=== PATIENT | male | born 1960 | race Caucasian/White ===

== ENCOUNTER 2017-05-14 19:00 | Emergency (ER) | payer MEDICAID, OTHER ==
[~2017-05-14] VITALS: Ht 172.7 cm; Wt 103.6 kg
[~2017-05-14 19:00] MED LIST: AMLO2.5T29 PO; METF500T4 PO
[2017-05-14 19:33] LABS: GLUCOSE,POINT OF CARE 186 MG/DL (70-110)
[2017-05-14] MEDS ORDERED: KETOROLAC TROMETHAMINE 60 MG/2 ML VIAL IM ONE (21:30)
[2017-05-14 22:19] VITALS: BP 157/102
== END 2017-05-14 22:50 | disposition home or self-care (01) ==
LOC: EMS 19:02
DX: M25.811 Other specified joint disorders, right shoulder (principal); E11.9 Type 2 diabetes mellitus without complications; I10 Essential (primary) hypertension
CPT/HCPCS: 73030; 82962; 96372; 99284; J1885

== ENCOUNTER 2017-08-20 10:53 | Emergency (ER) | payer OTHER ==
[~2017-08-20] VITALS: Ht 172.7 cm; Wt 105.0 kg
[2017-08-20 11:23] LABS: GLUCOSE,POINT OF CARE 208 MG/DL (70-110)
[2017-08-20 13:49] VITALS: BP 149/98
== END 2017-08-20 14:40 | disposition home or self-care (01) ==
LOC: EMS 11:00
DX: J18.9 Pneumonia, unspecified organism (principal); I10 Essential (primary) hypertension; E11.9 Type 2 diabetes mellitus without complications
CPT/HCPCS: 71046; 82962; 99284

== ENCOUNTER 2018-01-01 15:40 | Emergency (ER) | payer OTHER ==
[~2018-01-01] VITALS: Ht 170.2 cm; Wt 105.0 kg
[~2018-01-01 15:40] MED LIST changes: -AMLO2.5T29 PO; -METF500T4 PO; +METF500T6 PO
[2018-01-01 15:49] LABS: GLUCOSE,POINT OF CARE 141 MG/DL (70-110)
[2018-01-01 16:49] VITALS: BP 137/90
== END 2018-01-01 16:49 | disposition home or self-care (01) ==
LOC: EMS 15:41
DX: S76.012A Strain of muscle, fascia and tendon of left hip, initial encounter (principal); E11.9 Type 2 diabetes mellitus without complications; I10 Essential (primary) hypertension; W18.40XA Slipping, tripping and stumbling without falling, unspecified, initial encounter; Y93.89 Activity, other specified; Y92.89 Other specified places as the place of occurrence of the external cause; Y99.0 Civilian activity done for income or pay
CPT/HCPCS: 99283

== ENCOUNTER 2022-04-11 07:52 | Emergency (ER) | payer OTHER ==
[~2022-04-11] VITALS: Ht 170.2 cm; Wt 104.0 kg
[~2022-04-11 07:52] MED LIST changes: +METF-1211 PO; -METF500T6 PO
[2022-04-11 08:45] LABS: COVID AG,FIA SOURCE NASOPHARYNGEAL
[2022-04-11 08:55] LABS: BASOPHILS % (AUTO) 0.5 % (0.0-2.0); EOSINOPHILS % (AUTO) 4.1 % (1.0-6.0); HEMATOCRIT 39.3 % (41-53); HEMOGLOBIN 13.4 g/dL (13.5-17.5); LYMPHOCYTES # (AUTO) 1.6 K/uL (1.0-4.8); LYMPHOCYTES % (AUTO) 35.4 % (22.0-44.0); MEAN CORPUSCULAR HEMOGLOBIN 33.2 pg (26.0-34.0); MEAN CORPUSCULAR VOLUME 98 fL (80-100); MONOCYTES # (AUTO) 0.3 K/uL (0.1-1.0); MONOCYTES % (AUTO) 7.7 % (2.0-9.0); NEUTROPHILS # (AUTO) 2.3 K/uL (1.8-7.7); NEUTROPHILS % (AUTO) 52.3 % (40.0-70.0); PLATELET COUNT (AUTO) 217 K/uL (150-450); RED BLOOD CELL COUNT(AUTO) 4.03 MIL/uL (4.50-5.90); RED CELL DISTRIBUTION WIDTH 14.1 % (11.5-14.5)
[2022-04-11 08:56] LABS: ANION GAP 9 mmol/L (8-16); CALCIUM, TOTAL 9.1 mg/dL (8.8-10.5); CARBON DIOXIDE 26 mmol/L (22-29); CHLORIDE 99 mmol/L (98-107); CREATININE 0.96 mg/dL (0.60-1.30); GLUCOSE,RANDOM 221 mg/dL (70-110); POTASSIUM 4.3 mmol/L (3.5-5.1); SODIUM SERUM 134 mmol/L (136-145); UREA NITROGEN, BLOOD 14 mg/dL (7-18)
[2022-04-11 09:02] LABS: ALANINE AMINOTRANSFERASE 30 U/L (12-78); ALBUMIN 3.3 g/dL (3.4-5.0); ALKALINE PHOSPHATASE 154 U/L (46-116); ASPARTATE AMINOTRANSFERASE 41 U/L (15-37); BILIRUBIN,TOTAL 0.5 mg/dL (0.1-1.0); TOTAL PROTEIN, SERUM 7.9 g/dL (6.4-8.2)
[2022-04-11 09:09] LABS: GLOMERULAR FILTR. RATE CALC > 60 mL/min (>60)
[2022-04-11 09:14] LABS: B-TYPE NATRIURETIC PEPTIDE 39 pg/mL (0-100)
[2022-04-11 09:54] LABS: INFLUENZA TYPE A NEGATIVE FOR TYPE A (NEGATIVE); INFLUENZA TYPE B NEGATIVE FOR TYPE B (NEGATIVE)
[2022-04-11 09:59] LABS: APPEARANCE,URINE CLEAR (CLEAR); BILIRUBIN,URINE NEGATIVE (NEGATIVE); GLUCOSE, URINE (UA) TRACE mg/dL (NEGATIVE); KETONES,URINE NEGATIVE (NEGATIVE); LEUKOCYTE ESTERASE ,URINE NEGATIVE (NEGATIVE); NITRATE,URINE NEGATIVE (NEGATIVE); OCCULT BLOOD,URINE NEGATIVE (NEGATIVE); PH,URINE 6.5 (5.0-8.0); PROTEIN,URINE NEGATIVE (NEGATIVE); SPECIFIC GRAVITIY, URINE 1.005 (1.003-1.030); UROBILINOGEN,URINE <=1.0 mg/dL (<=1.0)
[2022-04-11 11:19] VITALS: BP 149/82
[2022-04-11 11:38] LABS: BACTERIA,URINE None Seen /HPF (None Seen); RBC,URINE None Seen /HPF (0-2); WBC,URINE None Seen /HPF (0-5)
[2022-04-11] MEDS ORDERED: ACET-66 PO (11:54)
[2022-04-11] MEDS ORDERED: GUAIFDM PO (11:54)
== END 2022-04-11 12:16 | disposition home or self-care (01) ==
LOC: EMS 07:57
DX: R53.1 Weakness (principal); Z20.822 Contact with and (suspected) exposure to COVID-19; B19.20 Unspecified viral hepatitis C without hepatic coma; E11.65 Type 2 diabetes mellitus with hyperglycemia; F10.20 Alcohol dependence, uncomplicated; I10 Essential (primary) hypertension; J06.9 Acute upper respiratory infection, unspecified
CPT/HCPCS: 71045; 80053; 81001; 82962; 83880; 84484; 85025; 87804; 93005; 99285; 36415-L1; 36415-TC

== ENCOUNTER 2022-06-20 09:49 | Emergency (ER) | payer OTHER ==
[~2022-06-20] VITALS: Ht 170.2 cm; Wt 108.2 kg
[~2022-06-20 09:49] MED LIST changes: +ACET-66 PO; +GUAIFDM PO
[2022-06-20] MEDS ORDERED: OSEL75 PO (10:00)
[2022-06-20] MEDS ORDERED: DOXY75CA5 PO (10:00)
[2022-06-20] MEDS ORDERED: BENZ-70 PO (10:00)
[2022-06-20 10:45] LABS: COVID AG,FIA SOURCE NASOPHARYNGEAL
[2022-06-20] MEDS ORDERED: ACETAMINOPHEN/CODEINE 300-30 MG TABLET PO ONE (10:45)
[2022-06-20] MEDS ORDERED: GuaiFENesin/D-METHORPHAN [SUGAR-FREE] 200-20MG/10 ML SYRUP UDCUP PO ONE (10:45)
[2022-06-20 10:57] LABS: BASOPHILS % (AUTO) 0.4 % (0.0-2.0); EOSINOPHILS % (AUTO) 6.8 % (1.0-6.0); HEMATOCRIT 42.1 % (41-53); HEMOGLOBIN 14.4 g/dL (13.5-17.5); LYMPHOCYTES # (AUTO) 1.7 K/uL (1.0-4.8); LYMPHOCYTES % (AUTO) 38.3 % (22.0-44.0); MEAN CORPUSCULAR HEMOGLOBIN 32.5 pg (26.0-34.0); MEAN CORPUSCULAR HGB CONC 34.1 G/dL (31.0-37.0); MEAN CORPUSCULAR VOLUME 95 fL (80-100); MONOCYTES # (AUTO) 0.5 K/uL (0.1-1.0); MONOCYTES % (AUTO) 10.9 % (2.0-9.0); NEUTROPHILS % (AUTO) 43.6 % (40.0-70.0); PLATELET COUNT (AUTO) 205 K/uL (150-450); RED BLOOD CELL COUNT(AUTO) 4.41 MIL/uL (4.50-5.90); RED CELL DISTRIBUTION WIDTH 13.3 % (11.5-14.5)
[2022-06-20 11:09] LABS: CREATININE 1.3 mg/dL (0.60-1.30); POTASSIUM 3.8 mmol/L (3.5-5.1)
[2022-06-20 11:17] LABS: ALBUMIN 3.4 g/dL (3.4-5.0); BILIRUBIN,TOTAL 0.7 mg/dL (0.1-1.0); TOTAL PROTEIN, SERUM 8.3 g/dL (6.4-8.2)
[2022-06-20 11:46] LABS: INFLUENZA TYPE A NEGATIVE FOR TYPE A (NEGATIVE); INFLUENZA TYPE B NEGATIVE FOR TYPE B (NEGATIVE)
[2022-06-20 12:18] VITALS: BP 136/88
[2022-06-20] MEDS ORDERED: IBUP-1554 PO (12:55)
[2022-06-20] MEDS ORDERED: ACET-2080 PO (12:55)
== END 2022-06-20 14:13 | disposition home or self-care (01) ==
LOC: EMS 09:54
DX: R07.89 Other chest pain (principal); J40 Bronchitis, not specified as acute or chronic; J06.9 Acute upper respiratory infection, unspecified; E11.65 Type 2 diabetes mellitus with hyperglycemia; I10 Essential (primary) hypertension; Z98.890 Other specified postprocedural states; Z20.822 Contact with and (suspected) exposure to COVID-19
CPT/HCPCS: 71045; 80053; 82962; 84484; 85025; 87804; 93005; 99285; 36415-L1; 36415-TC

== ENCOUNTER 2022-09-30 11:23 | Emergency (ER) | payer OTHER ==
[~2022-09-30] VITALS: Ht 170.2 cm; Wt 136.4 kg
[~2022-09-30 11:23] MED LIST changes: +ACET-2080 PO; -ACET-66 PO; +BENZ-227 PO; +DOXY75CA5 PO; -GUAIFDM PO; +IBUP-1554 PO; -METF-1211 PO; +OSEL75 PO
[2022-09-30 12:49] LABS: COVID AG,FIA SOURCE NASAL SWAB
[2022-09-30] MEDS ORDERED: ACETAMINOPHEN 500 MG TABLET PO ONE (13:00)
[2022-09-30] MEDS ORDERED: OXYMETAZOLINE HCL 0.05% 15 ML NASAL SPRAY NASAL ONE (13:00)
[2022-09-30] MEDS ORDERED: IBUPROFEN 600 MG TABLET PO ONE (13:00)
[2022-09-30 13:10] LABS: INFLUENZA TYPE A NEGATIVE FOR TYPE A (NEGATIVE); INFLUENZA TYPE B NEGATIVE FOR TYPE B (NEGATIVE)
[2022-09-30] MEDS ORDERED: NIRM1TAB4 PO ×2 (14:13→15:16)
[2022-09-30] MEDS ORDERED: ACET-3385 PO ×2 (14:14→15:17)
[2022-09-30 14:15] VITALS: BP 160/89
[2022-09-30] MEDS ORDERED: IBUP-1492 PO ×2 (14:15→15:15)
== END 2022-09-30 15:30 | disposition home or self-care (01) ==
LOC: EMS 11:26
DX: U07.1 COVID-19 (principal); E11.9 Type 2 diabetes mellitus without complications; I10 Essential (primary) hypertension
CPT/HCPCS: 87804; 99283